=== PATIENT | female | born 1985 | race Caucasian/White ===

== ENCOUNTER 2018-03-06 22:39 | Emergency (ER) | payer OTHER ==
[2018-03-06 22:55] VITALS: TEMP 97
--- NOTE | 2018-03-07 00:28 | ED ---
Wound/Laceration HPI - General Chief Complaint: Wound/Laceration Stated Complaint: LAC ON LEFT ARM Time Seen by Provider: 03/06/18 23:36 Source: patient, RN notes reviewed, old records reviewed Mode of arrival: ambulatory Limitations: no limitations - History of Present Illness Initial Comments: 32-year-old female presents that she will complain of a laceration of her left forearm. She was doing dishes and she cut her arm on the night that she was lifting the dishes above the sink. Patient has been placed a tourniquet over this area. She is right-handed. She states she has full range of motion of the hand and wrist. Tetanus is up-to-date.Patient denies any recent fever, chills, shortness of breath, chest pain, back pain, abdominal pain, nausea vomiting, numbness or tingling, dysuria or hematuria, constipation or diarrhea, headaches or visual changes, or any other current symptoms - Related Data Home Medications Medication Instructions Recorded Confirmed Dextroamphetamine/Amphetamine 10 mg PO BID 05/29/14 05/29/14 [Adderall] Hydrocodone/Acetaminophen [[place] 1 tab PO BID PRN 05/29/14 05/29/14 7.5-325] Previous Rx's Medication Instructions Recorded Cyclobenzaprine [Flexeril] 10 mg PO TID PRN #20 tablet 05/29/14 Naproxen [Naprosyn] 500 mg PO Q12HR #30 tab 05/29/14 Cephalexin [Keflex] 500 mg PO Q8HR #21 cap 03/07/18 Allergies Allergy/AdvReac Type Severity Reaction Status Date / Time No Known Allergies Allergy Verified 03/06/18 22:56 Review of Systems ROS Statement: Those systems with pertinent positive or pertinent negative responses have been documented in the HPI. ROS Other: All systems not noted in ROS Statement are negative. Past Medical History Additional Past Medical History / Comment(s): back pain History of Any Multi-Drug Resistant Organisms: None Reported Past Surgical History: Hysterectomy Past Psychological History: Depression Smoking Status: Current every day smoker Past Alcohol Use History: Occasional Past Drug Use History: None Reported General Exam - General Exam Comments Initial Comments: 32-year-old female. No distress. Limitations: no limitations General appearance: alert, in no apparent distress Head exam: Present: atraumatic, normocephalic, normal inspection Eye exam: Present: normal appearance, PERRL, EOMI. Absent: scleral icterus, conjunctival injection, periorbital swelling ENT exam: Present: normal exam, mucous membranes moist Neck exam: Present: normal inspection. Absent: tenderness, meningismus, lymphadenopathy Respiratory exam: Present: normal lung sounds bilaterally. Absent: respiratory distress, wheezes, rales, rhonchi, stridor Cardiovascular Exam: Present: regular rate, normal rhythm, normal heart sounds. Absent: systolic murmur, diastolic murmur, rubs, gallop, clicks GI/Abdominal exam: Present: soft, normal bowel sounds. Absent: distended, tenderness, guarding, rebound, rigid Extremities exam: Present: normal inspection, full ROM, normal capillary refill , other (Patient has a linear 7 cm laceration over the forearm. No evidence of muscle involvement.). Absent: tenderness, pedal edema, joint swelling, calf tenderness Back exam: Present: normal inspection Neurological exam: Present: alert, oriented X3, CN II-XII intact Psychiatric exam: Present: normal affect, normal mood Skin exam: Present: warm, dry, intact, normal color. Absent: rash Course Vital Signs 03/06/18 03/07/18 22:52 00:28 Temperature 97 F L Pulse Rate 139 H 104 H Respiratory 20 18 Rate Blood Pressure 115/70 124/76 O2 Sat by Pulse 96 98 Oximetry Procedures - Laceration Laceration #1 Site: upper extremity (left forearm) Size (cm): 7 Description: linear Depth: simple, single layer Anesthetic Used: lidocaine 1% Anesthesia Technique: local infiltration Amount (mls): 10 Pre-repair: wound explored, irrigated extensively Type of Sutures: nylon Size of Sutures: 5-0 Number of Sutures: 9 Technique: simple, interrupted Patient Tolerated Procedure: well, no complications Medical Decision Making - Medical Decision Making This patient's a 32-year-old female presents to the emergency with left forearm laceration. No evidence of muscle involvement. Laceration is superficial. She has full range of motion of the hand and wrist. Her tetanus is up-to-date. Patient's wound was thoroughly irrigated and closed with Betadine. Patient received 9 sutures and wound was well approximated. Discussed monitoring for infection. Patient will be discharged with Keflex she also has been complaining of tooth pain. Discussed that we'll coverage. She is following up with her PCP. All questions answered return parameters were discussed. Patient did request a work note. She left without receiving a work note, if she returns it would be okay to give her one. Disposition Clinical Impression: Laceration of left forearm Disposition: HOME SELF-CARE Condition: Good Instructions: Care For Your Stitches (ED), Laceration (ED) Additional Instructions: Please return to the emergency room in 8-10 days to have sutures removed. Please leave wound covered for the first 24-48 hours and then leave open to air after that time. Please use clean soap and water to clean the suture area to prevent scabbing over the top of your sutures. Please watch for any signs of infection which may include but not limited to increased pain, swelling, redness , fever or chills. Please return to the emergency room if any signs of infection do occur. Please return to the emergency room for any other concerns or complications. Prescriptions: Cephalexin [Keflex] 500 mg PO Q8HR #21 cap Is patient prescribed a controlled substance at d/c from ED?: No If prescribed controlled substance>3 days was MAPS reviewed?: No When asked, does pt state using other controlled substances?: No Referrals: Gracie Hager MD [Primary Care Provider] - 1-2 days Time of Disposition: 00:27
[2018-03-07 00:31] VITALS: BP 124/76; PULSE 104; RESP 18
== END 2018-03-07 00:43 | disposition home or self-care (01) ==
LOC: EC 22:39
DX: S51.812A Laceration without foreign body of left forearm, initial encounter (principal); F17.200 Nicotine dependence, unspecified, uncomplicated; Z79.899 Other long term (current) drug therapy; W26.9XXA Contact with unspecified sharp object(s), initial encounter; Y93.89 Activity, other specified
CPT/HCPCS: 12002; 99283

== ENCOUNTER 2018-03-08 13:58 | Emergency (ER) | payer OTHER ==
[2018-03-08 14:20] VITALS: BP 148/92; PULSE 105; RESP 18; TEMP 98.6
--- NOTE | 2018-03-08 14:37 | ED ---
General Adult HPI - General Chief complaint: Recheck/Abnormal Lab/Rx Stated complaint: revisit wound check left arm Time Seen by Provider: 03/08/18 14:13 Source: patient, RN notes reviewed, old records reviewed Mode of arrival: ambulatory Limitations: no limitations - History of Present Illness Initial comments: This is a 32-year-old female the ER for evaluation, patient is today for reevaluation regarding left forearm laceration and repair. Patient states she has mild erythema to the forearm with itching. Denies any other complaints. Patient is currently taking Keflex and she was discharged with yesterday. She has not washed or unwrap the wound since it was covered yesterday denies any fevers, no other complaints - Related Data Home Medications Medication Instructions Recorded Confirmed Dextroamphetamine/Amphetamine 10 mg PO BID 05/29/14 05/29/14 [Adderall] Hydrocodone/Acetaminophen [[place] 1 tab PO BID PRN 05/29/14 05/29/14 7.5-325] Previous Rx's Medication Instructions Recorded Cyclobenzaprine [Flexeril] 10 mg PO TID PRN #20 tablet 05/29/14 Naproxen [Naprosyn] 500 mg PO Q12HR #30 tab 05/29/14 Cephalexin [Keflex] 500 mg PO Q8HR #21 cap 03/07/18 Allergies Allergy/AdvReac Type Severity Reaction Status Date / Time No Known Allergies Allergy Verified 03/08/18 14:34 Review of Systems ROS Statement: Those systems with pertinent positive or pertinent negative responses have been documented in the HPI. ROS Other: All systems not noted in ROS Statement are negative. Past Medical History Past Medical History: No Reported History Additional Past Medical History / Comment(s): back pain History of Any Multi-Drug Resistant Organisms: None Reported Past Surgical History: Hysterectomy Past Psychological History: ADD/ADHD, Depression Smoking Status: Current every day smoker Past Alcohol Use History: Occasional Past Drug Use History: None Reported General Exam - General Exam Comments Initial Comments: (Laceration shows good healing, no evidence of infection Limitations: no limitations General appearance: alert, in no apparent distress Head exam: Present: atraumatic, normocephalic, normal inspection Eye exam: Present: normal appearance, PERRL, EOMI. Absent: scleral icterus, conjunctival injection, periorbital swelling ENT exam: Present: normal exam, mucous membranes moist Neck exam: Present: normal inspection. Absent: tenderness, meningismus, lymphadenopathy Respiratory exam: Present: normal lung sounds bilaterally. Absent: respiratory distress, wheezes, rales, rhonchi, stridor Cardiovascular Exam: Present: regular rate, normal rhythm, normal heart sounds. Absent: systolic murmur, diastolic murmur, rubs, gallop, clicks GI/Abdominal exam: Present: soft, normal bowel sounds. Absent: distended, tenderness, guarding, rebound, rigid Extremities exam: Present: normal inspection, full ROM, normal capillary refill. Absent: tenderness, pedal edema, joint swelling, calf tenderness Back exam: Present: normal inspection Neurological exam: Present: alert, oriented X3, CN II-XII intact Psychiatric exam: Present: normal affect, normal mood Skin exam: Present: warm, dry, intact, normal color. Absent: rash Course Vital Signs 03/08/18 14:17 Temperature 98.6 F Pulse Rate 105 H Respiratory 18 Rate Blood Pressure 148/92 O2 Sat by Pulse 97 Oximetry - Reevaluation(s) Reevaluation #1: 03/08/18 14:36 Patient again discussed wound care, encouraged to continue taking antibiotics. Medical Decision Making - Medical Decision Making 32 female the ER for reevaluation left forearm laceration. Patient showing good healing no evidence of infection, patient will be discharged home Disposition Clinical Impression: Laceration of left forearm, Encounter for wound re-check Disposition: HOME SELF-CARE Condition: Good Instructions: Laceration (ED), Care For Your Stitches (ED) Is patient prescribed a controlled substance at d/c from ED?: No Referrals: Gracie Hager MD [Primary Care Provider] - 1-2 days
== END 2018-03-08 15:03 | disposition home or self-care (01) ==
LOC: EC 13:58
DX: S51.812D Laceration without foreign body of left forearm, subsequent encounter (principal); F90.9 Attention-deficit hyperactivity disorder, unspecified type; F17.200 Nicotine dependence, unspecified, uncomplicated; Z79.899 Other long term (current) drug therapy; X58.XXXD Exposure to other specified factors, subsequent encounter
CPT/HCPCS: 99283

== ENCOUNTER 2019-05-14 14:48 | Emergency (ER) | payer OTHER ==
[2019-05-14 15:00] VITALS: RESP 18
[2019-05-14] MEDS ORDERED: KETOROLAC 60 MG/2 ML VIAL IM STA (15:35)
[2019-05-14] MEDS ORDERED: ORPHENADRINE 30 MG/ML 2 ML VIAL IM STA (15:35)
--- NOTE | 2019-05-14 15:41 | ED ---
Neck Injury/Pain HPI - General Chief Complaint: Neck Pain/Injury Stated Complaint: Neck Pain, Both shoulders in pain Time Seen by Provider: 05/14/19 15:19 Source: patient, RN notes reviewed Mode of arrival: ambulatory Limitations: no limitations - History of Present Illness Initial Comments: This a 33-year-old female presents emergency Department chief complaint of neck and upper back pain. This is a chronic issue worsening. Patient was supposed go to an MRI at 2:30 today at orthopedics but states that she went in was claustrophobic sad removed. She has one scheduled tomorrow and one on Tuesday now. Patient call her PCP because he symptoms and advised to come emergency department. She has no loss control of her upper extremities no chest pain or shortness of breath. Patient states the pain is all more than usual. Patient does take more [place] day for extreme pain and states that she's been taking ibuprofen but nothing recently. - Related Data Home Medications Medication Instructions Recorded Confirmed Hydrocodone/Acetaminophen [[place] 1 tab PO BID PRN 05/29/14 03/08/18 7.5-325] Dextroamphetamine/Amphetamine 20 mg PO TID 03/08/18 03/08/18 [Adderall] Previous Rx's Medication Instructions Recorded Cephalexin [Keflex] 500 mg PO Q8HR #21 cap 03/07/18 Cyclobenzaprine [Flexeril] 10 mg PO TID PRN #15 tab 05/14/19 Ketorolac [Toradol] 10 mg PO Q8HR #15 tab 05/14/19 LORazepam [Ativan] 1 mg PO ONCE #2 tab 05/14/19 Allergies Allergy/AdvReac Type Severity Reaction Status Date / Time No Known Allergies Allergy Verified 05/14/19 14:56 Review of Systems ROS Statement: Those systems with pertinent positive or pertinent negative responses have been documented in the HPI. ROS Other: All systems not noted in ROS Statement are negative. Past Medical History Past Medical History: No Reported History Additional Past Medical History / Comment(s): back pain History of Any Multi-Drug Resistant Organisms: None Reported Past Surgical History: Section, Hysterectomy Past Psychological History: ADD/ADHD, Depression Smoking Status: Current every day smoker Past Alcohol Use History: Occasional Past Drug Use History: None Reported General Exam Limitations: no limitations General appearance: alert, in no apparent distress Head exam: Present: atraumatic, normocephalic, normal inspection Eye exam: Present: normal appearance, PERRL, EOMI. Absent: scleral icterus, conjunctival injection, periorbital swelling ENT exam: Present: normal exam, normal oropharynx, mucous membranes moist Neck exam: Present: normal inspection, tenderness (Paraspinal), full ROM. Absent: meningismus, lymphadenopathy Respiratory exam: Present: normal lung sounds bilaterally. Absent: respiratory distress, wheezes, rales, rhonchi, stridor Cardiovascular Exam: Present: regular rate, normal rhythm, normal heart sounds. Absent: systolic murmur, diastolic murmur, rubs, gallop, clicks GI/Abdominal exam: Present: soft, normal bowel sounds. Absent: distended, tenderness, guarding, rebound, rigid Extremities exam: Present: normal inspection, full ROM, normal capillary refill. Absent: tenderness, pedal edema, joint swelling, calf tenderness Back exam: Present: full ROM. Absent: tenderness, paraspinal tenderness, vertebral tenderness Neurological exam: Present: alert, oriented X3, CN II-XII intact, reflexes normal. Absent: motor sensory deficit Course Vital Signs 05/14/19 14:56 Temperature 98.2 F Pulse Rate 114 H Respiratory 18 Rate Blood Pressure 119/86 O2 Sat by Pulse 100 Oximetry Medical Decision Making - Medical Decision Making 33-year-old female presented for neck and back pain this is chronic in nature. Patient will given Toradol and Norflex in emergency department discharged with Toradol and Flexeril. Patient we given 2 Ativan for her MRIs and will follow-up with PCP. Disposition Clinical Impression: Neck pain Disposition: HOME SELF-CARE Condition: Stable Instructions (If sedation given, give patient instructions): Neck Pain (ED) Additional Instructions: Please return to the Emergency Department if symptoms worsen or any other concerns. Prescriptions: LORazepam [Ativan] 1 mg PO ONCE #2 tab Cyclobenzaprine [Flexeril] 10 mg PO TID PRN #15 tab PRN Reason: Muscle Spasm Ketorolac [Toradol] 10 mg PO Q8HR #15 tab Is patient prescribed a controlled substance at d/c from ED?: Yes When asked, does pt state using other controlled substances?: Yes If prescribed controlled substance>3 days was MAPS reviewed?: Prescribed <3 Days Referrals: Gracie Hager MD [Primary Care Provider] - 1-2 days Time of Disposition: 15:41
[2019-05-14 16:15] VITALS: BP 122/86; PULSE 93; TEMP 98.9
== END 2019-05-14 16:12 | disposition home or self-care (01) ==
LOC: EC 14:48
DX: M54.2 Cervicalgia (principal); M54.9 Dorsalgia, unspecified; G89.29 Other chronic pain; F90.9 Attention-deficit hyperactivity disorder, unspecified type; F17.200 Nicotine dependence, unspecified, uncomplicated; Z79.899 Other long term (current) drug therapy
CPT/HCPCS: 99283; 96372 ×2; J2360; J1885

== ENCOUNTER 2020-03-22 20:58 | Emergency (ER) | payer OTHER ==
[2020-03-22 21:27] VITALS: BP 135/93; RESP 18; TEMP 98.2
[2020-03-22] MEDS ORDERED: PROPARACAINE 0.5% OPHTH DROPS 15 ML BTL BOTH EYES STA (22:03)
[2020-03-22] MEDS ORDERED: FLUORESCEIN STRIPS 1 MG STRIP BOTH EYES ONE (22:03)
[2020-03-22] MEDS ORDERED: ERYTHROMYCIN 5 MG/GM OPHTH OINT 1 GM TUBE BOTH EYES STA (22:38)
--- NOTE | 2020-03-22 22:43 | ED ---
General Adult HPI - General Chief complaint: Eye Problems Stated complaint: Eye Problems Time Seen by Provider: 03/22/20 22:03 Source: patient, RN notes reviewed Mode of arrival: ambulatory Limitations: no limitations - History of Present Illness Initial comments: 34-year-old female without any significant past medical history presents to the emergency department for left eye irritation. Patient states that she was gardening when she felt irritation in the left eye. States she felt like she got something in the eye. States she rubbed the area and it felt itchy. States that she tried to rinse her eye out. Patient states she still feels like something is in her eye. She is up-to-date on tetanus 2 years ago. She does not work contacts. She denies visual changes. She denies pain with movement of the eye. States it has been tearful.Patient has no other complaints at this time including shortness of breath, chest pain, abdominal pain, nausea or vomiting, headache, or visual changes. - Related Data Home Medications Medication Instructions Recorded Confirmed Hydrocodone/Acetaminophen [[place] 1 tab PO BID PRN 05/29/14 03/08/18 7.5-325] Dextroamphetamine/Amphetamine 20 mg PO TID 03/08/18 03/08/18 [Adderall] Previous Rx's Medication Instructions Recorded Cephalexin [Keflex] 500 mg PO Q8HR #21 cap 03/07/18 Cyclobenzaprine [Flexeril] 10 mg PO TID PRN #15 tab 05/14/19 Ketorolac [Toradol] 10 mg PO Q8HR #15 tab 05/14/19 LORazepam [Ativan] 1 mg PO ONCE #2 tab 05/14/19 Allergies Allergy/AdvReac Type Severity Reaction Status Date / Time No Known Allergies Allergy Verified 03/22/20 21:27 Review of Systems ROS Statement: Those systems with pertinent positive or pertinent negative responses have been documented in the HPI. ROS Other: All systems not noted in ROS Statement are negative. Past Medical History Past Medical History: No Reported History Additional Past Medical History / Comment(s): back pain History of Any Multi-Drug Resistant Organisms: None Reported Past Surgical History: Section, Hysterectomy Past Psychological History: ADD/ADHD, Depression Smoking Status: Current every day smoker Past Alcohol Use History: Occasional Past Drug Use History: None Reported General Exam Limitations: no limitations General appearance: alert, in no apparent distress Head exam: Present: atraumatic, normocephalic, normal inspection Eye exam: Present: normal appearance, PERRL, EOMI. Absent: scleral icterus, conjunctival injection, periorbital swelling Expanded Eyelids: Normal Inspection: Bilateral Pupils: Regular, Round: Bilateral Sclera/Conjunctival: Injection: Left IOP (R) in mmH IOP (L) in mmH IOP measured with: [place] ENT exam: Present: normal exam, mucous membranes moist Neck exam: Present: normal inspection, full ROM. Absent: tenderness, meningismus, lymphadenopathy Respiratory exam: Present: normal lung sounds bilaterally. Absent: respiratory distress, wheezes, rales, rhonchi, stridor Cardiovascular Exam: Present: regular rate, normal rhythm, normal heart sounds. Absent: bradycardia, tachycardia, irregular rhythm GI/Abdominal exam: Present: soft, normal bowel sounds. Absent: distended, t enderness, guarding, rebound, rigid Neurological exam: Present: alert Psychiatric exam: Present: normal affect, normal mood Course Vital Signs 03/22/20 21:22 Temperature 98.2 F Pulse Rate 125 H Respiratory 18 Rate Blood Pressure 135/93 O2 Sat by Pulse 97 Oximetry Medical Decision Making - Medical Decision Making Left eye was examined. Both eyelids were flipped. I do not see evidence of foreign body. Proparacaine was applied to the left eye which completely alleviated her pain. The eye was then stained with fluorescein stain. Patient has a small abrasion noted at about 3:00 on the cornea of the left eye. There is no evidence for foreign body. Patient is up-to-date on tetanus and does not wear contacts. She was given ointment for the left eye. Discussed that should start improving in next 24 hours and if it does not return to the emergency room. She will return for any other worsening symptoms in that timeframe. She will follow up with ophthalmology, referral given. Disposition Clinical Impression: Corneal abrasion, left Disposition: HOME SELF-CARE Condition: Good Instructions (If sedation given, give patient instructions): Corneal Abrasion (ED) Additional Instructions: Please apply ointment every 6 hours. Give the eye about 24 hours to start feeling better. If it does not start feeling better or worsens in that time return to the emergency department. Otherwise follow-up with ophthalmology this and is possible. Is patient prescribed a controlled substance at d/c from ED?: No Referrals: Gracie Hager MD [Primary Care Provider] - 1-2 days Jolene Lamb MD [STAFF PHYSICIAN] - 1-2 days Time of Disposition: 22:39
[2020-03-22 22:59] VITALS: PULSE 98
== END 2020-03-22 22:59 | disposition home or self-care (01) ==
LOC: EC 20:58
DX: S05.02XA Injury of conjunctiva and corneal abrasion without foreign body, left eye, initial encounter (principal); F90.9 Attention-deficit hyperactivity disorder, unspecified type; F17.200 Nicotine dependence, unspecified, uncomplicated; Z79.899 Other long term (current) drug therapy; Y93.H2 Activity, gardening and landscaping; Y92.89 Other specified places as the place of occurrence of the external cause
CPT/HCPCS: 99283

== ENCOUNTER → 2020-11-17 | Outpatient (CLI) | payer OTHER ==
[2020-11-17 09:15] VITALS: BP 120/86; PULSE 111; RESP 18; TEMP 97.7
--- NOTE | 2020-11-17 19:50 | P.PN ---
Progress Note - Text Progress Note Date: 11/17/20 35-year-old female who presents to the [facility] pain clinic as an initial consultation with a chief complaint of neck pain. She states that pain began gradually over the past couple years. She does not recall a mechanism of injury. Pain is mostly on the left side worse with lateral rotation to the left she radiates to her scapula to her left shoulder. VAS at its worse is a 6 out of 10 in severity currently is a 5 out of 10. She describes as a throbbing, ach ing, sharp pain. It's typically worse in the morning and in the evening. Pain is problematic for her day-to-day activities. She feels it is getting worse. She is currently an active smoker. She has not had any physical therapy for this issue, she is taking [id number] medications. In addition to above, 13-point review of systems is also negative for chest pain, shortness of breath, changes in vision, changes in hearing, new onset weakness, abdominal pain, diarrhea, extreme fatigue, malaise, fever, skin changes, homicidal or suicidal ideation, or bowel or bladder incontinence. 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 Reflexes: 2/2 bicep, 2/2 brachioradialis, 2/2 tricep Primitive Reflexes: (-) Prasad, (-) Lhermitte, (-) Myoclonus Lumbar spine: Palpation: No tenderness to palpation Inspection: No deformities or scoliosis Range of motion: nromal flexion and extension Facet loading: Negative bilateral RADHA test: Negative bilateral Reflexes: 2/2 bilateral knee and ankle Neuromuscular: Sensation: Intact from L1-S1 Motor: 5/5 hip flexion, 5/5 knee extension, 5/5 (EHL), 5/5 Dorsiflexion, 5/5 Plantar Flexion bilateral Gait: No gait abnormalities, no assist device utilized Neuro: CN II-XII grossly intact, muscle strength lower extremities PRESERVED Assessment: 1. Cervicalgia 2. Cervical spondylosis Plan: 1. Explanation: Opioid and psychological risk scores were reviewed. Diagnoses, prognoses, and multiple treatment options including but not limited to physical therapy, interventional therapies, adjuvant medical therapies, narcotic medication therapies, and surgery were discussed with the patient and all questions were answered to the patient's satisfaction. 2. Opioid agreement: Patient signed narcotic agreement, and was orally counseled to not overuse, abuse, divert, or cell medications, and to take them as prescribed by only 1 healthcare provider. The patient was also counseled to take medications as prescribed by only 1 healthcare provider and to store opioid medications in the safe and preferably locked location. Patient was also counseled against driving or operating heavy equipment while using narcotic medications and also not use alcohol or any illicit or recreational drugs. The patient verbalized understanding that lack of compliance with any of the above and likely result in failure to renew narcotic prescriptions, possible discharge from the clinic, and possible legal ramifications thereafter if indicated. 3. Counseling: The patient was counseled extensively on SMOKING CESSATION, EXERCISE. Specifically, the patient was instructed regarding the importance of smoking cessation, and exercise in the context of both chronic pain and overall health. 4. Procedures: None 5. Consultations: None 6. Investigations: Images reviewed, maps reviewed 7. Medications: Meloxicam 15 mg once daily, recommended vitamin D supplementation. 8. Disposition: Patient will follow up as needed trialing meloxicam and switching from ibuprofen. PQRS measures: Completed on a separate document
== END | disposition home or self-care (01) ==
LOC: PNWHC3 08:52
PROVIDERS: ATTEND Anesthesiology
DX: M47.812 Spondylosis without myelopathy or radiculopathy, cervical region (principal); Z79.1 Long term (current) use of non-steroidal anti-inflammatories (NSAID); Z79.899 Other long term (current) drug therapy
CPT/HCPCS: 99211

== ENCOUNTER → 2021-01-12 | Outpatient (CLI) | payer OTHER ==
[2021-01-12 10:29] VITALS: BP 136/92; PULSE 109; RESP 18; TEMP 98.1
--- NOTE | 2021-01-12 10:56 | P.PN ---
Subjective Progress Note Date: 01/12/21 Principal diagnosis: Neck pain, and shoulder pain Mrs. Degroot is a 35-year-old pleasant female came to the [facility] pain clinic for follow-up visit. Patient has ongoing neck pain, and shoulder pain for many years. Her pain recently getting better with the physical therapy, and meloxicam 15 mg by mouth daily. She described her pain is aching, throbbing type area. she rated her pain is 7 out of 10 in severity. Sometimes which may vary from 5-7 out of 10 in severity. Some days worse than the others. Activities making her pain worse. Physical therapy, and pain medications helping in relieving her pain. She denied any red flag symptoms. She denied any side effects with the medications. Objective - Vital Signs Vital signs: Vital Signs Temp 98.1 F 01/12/21 10:26 Pulse 109 H 01/12/21 10:26 Resp 18 01/12/21 10:26 BP 136/92 01/12/21 10:26 Pulse Ox 100 01/12/21 10:26 - Exam General: well-developed, well-nourished, no acute distress. HEENT: Normocephalic, atraumatic. Neck: supple, trachea midline CVS: Regular rate and rhythm Pulmonary : Not in labored breathing. Neurologic: No noticeable focal neurological deficits. Psychiatric: Appropriate mood and affect. Musculoskeletal: Upper extremity : Normal strength and range of motion, and sensation grossly intact.. Lower extremity: Normal strength and range of motion. Cervical paravertebral tenderness: Positive. Cervical facet load test: Positive. cervical Spurling test: negative Multiple trigger points positive over cervical, and upper thoracic area. Review of symptoms: 13 point review of symptoms negative except as mentioned in the history of present illness Assessment and Plan Assessment: Cervical spondylosis without myelopathy Myofascial pain syndrome Plan: 1. Diagnoses, prognoses, and multiple treatment options including but not limited to physical therapy, interventional therapies, adjunct medical therapies, and surgical options were discussed with the patient and all questions were answered to the patients satisfaction. 2. Treatment plan agreement: Patient was discussed regarding the medication side effects, and complications associated medications. 3. The patient was counseled on importance of regular exercise in controlling chronic pain as well as in terms of overall well-being. Patient counseled regarding the importance of regular exercise, and minimizing the intake of carbohydrates, and process foods which may help in decreasing the inflammation, and helps overall well-being. Patient counseled regarding smoking association with chronic pain, worsening inflammation, effects of smoking on liver and medication metabolism. Patient encouraged to stop smoking, patient was given information regarding smoking cessation program. 4. Consultations: Continue physical therapy exercises at home 5. Investigations: MAPS- appropriate , and urine drug test- not done. 6. Diagnostic studies: None. 7. Interventional procedures: Patient refused any interventional procedures at this time 8. Medications: #1 Mobic 15 mg by mouth daily as needed dispense 30 with 1 refill 9. Morphine milligram equivalent (MME) doses: 0 from the pain clinic. 10. Durable Medical Equipment (DME) : TENS units, and percussion massage device. 11. Disposition: Scheduled for follow-up in 8 weeks duration. I have spent greater than 22 minutes with this patient. Including but not limited to: [id number] time, on physical examination, electronic medical record review, counseling, and documentation
== END ==
LOC: PNWHC3 10:08
DX: M47.812 Spondylosis without myelopathy or radiculopathy, cervical region (principal); G89.4 Chronic pain syndrome; M79.18 Myalgia, other site
CPT/HCPCS: 99211

== ENCOUNTER → 2021-03-09 | Outpatient (CLI) | payer OTHER ==
[2021-03-09 10:17] VITALS: BP 136/97; PULSE 111; RESP 18; TEMP 97.6
--- NOTE | 2021-03-09 10:20 | P.PN ---
Subjective Progress Note Date: 03/09/21 Shakila is a 35-year-old female who presents as a follow-up secondary to left- sided neck pain. She reports she's had this pain for quite some time is relatively unchanged. The pain is of the left side of the neck which is worse flexion and extension of the cervical spine. The pain does not go down the arms or cause any numbness tingling or weakness in the upper or lower extremities. She is trialed physical therapy as well as NSAIDs without any significant relief. She is here today requesting previously discussed cervical medial branch blocks as a diagnostic tool. Review of Systems: Denies any New chest pain, short of breath, Nausea/vomitting, abdominal pain, bowel or bladder incontinence, or any overt new neurologic symptoms in the upper or lower extremities outside of what is noted in the HPI MRI of the cervical spine shows mild central joint arthropathy at 56 and C6 7 Objective - Vital Signs Vital signs: Intake & Output 03/08/21 03/09/21 03/09/21 18:59 06:59 18:59 Weight 68.039 kg - Exam PHYSICAL EXAM: Constitutional: Awake and alert no distress Cardiovascular exam: Regular rate, no lower extremity edema, palpable pulses bilaterally Respiratory exam: No audible wheezing, no accessory muscle usage Abdominal exam: Soft nontender Muscular skeletal exam: - Cervical spine: Minimal tenderness to palpation, flexion and extension causes pain. Facet loading is positive on the left. - Lumbar spine: Preserved lumbar lordosis. No changes in skin. Nontender palpation bilateral. Patient has full range of motion in flexion and extension as well as lateral sidebending. Straight leg raise is negative. Facet loading is negative. Neuro exam: Normal sensation bilateral upper and lower extremities. Deep tendon reflexes are 2+ bilaterally. Prasad's is negative Psychiatric exam: Cooperative, good insight Assessment and Plan Assessment: #1 cervical spondylosis without myelopathy Plan: Patient is failed conservative therapy and would like to move forward with testing of the cervical medial branches. I discussed this with the patient, she has verbalized understanding of the process that this is a diagnostic test and would last about 6 or 8 hours. We've explained that she should not have sedation for this procedure as it may alter the results of the study. We'll schedule her for a left-sided C5 6 and 67 cervical medial branch block. I will also refill her meloxicam. I have spent 23 minutes on patient care today. The time was used to review the medical records including relevant urine studies and Prescription history (MAPs), review of the available imaging, evaluation and examination of the patient, coordination of care with the medical staff and if applicable referring physicians, as well as creation of the medical record.
== END ==
LOC: PNWHC3 09:59
PROVIDERS: ATTEND Hospitalist
DX: M47.812 Spondylosis without myelopathy or radiculopathy, cervical region (principal)
CPT/HCPCS: 99211

== ENCOUNTER 2021-05-29 10:47 | Day surgery (SDC) | payer OTHER ==
[2021-05-28 12:06] VITALS: BMI 23.3
[~2021-05-29 10:47] MED LIST: LACTATED RINGERS 1,000 ML IV SCH
[2021-05-29 11:47] VITALS: RESP 16; TEMP 97.8
[2021-05-29] MEDS ORDERED: DEXAMETHASONE SOD PHOSPHATE 10 MG/ML 1 ML VIAL ONE (12:49)
[2021-05-29] MEDS ORDERED: MIDAZOLAM 2 MG/2 ML VIAL ONE (12:49)
[2021-05-29] MEDS ORDERED: ROPIVACAINE 5MG/ML 20ML VIAL ONE (12:49)
[2021-05-29] MEDS ORDERED: fentaNYL (PF) 50 MCG/ML 2 ML AMP ONE (12:49)
--- NOTE | 2021-05-29 13:10 | P.PCN ---
Date of Procedure: 05/29/21 Surgeon: Yadiel Mcintosh Pathology: none sent Condition: stable Disposition: PACU Description of Procedure: PREOPERATIVE DIAGNOSIS: Cervical Spondylosis with Facet Arthropathy.without myelopathy POSTOPERATIVE DIAGNOSIS: Cervical Spondylosis Facet Arthropathy. Without myelopathy PROCEDURES: Diagnostic left C5,6,7 medial branchs block with fluoroscopic guidance ANESTHESIA: Local with 1% lidocaine; with moderate conscious sedation by the anesthesia Department. EBL: Minimal PROCEDURE INDICATION: The patient with neck pain secondary to cervical arthropathy unresponsive to more conservative treatments. PROCEDURE DESCRIPTION / TECHNIQUE: The patient was seen and identified in the preoperative area. Risks, benefits, complications, and alternatives were discussed with the patient, the patient agreed to proceed with the procedure and signed the consent. IV was started. Vital signs remained stable throughout the procedure. Patient was taken to the OR and time out was completed. The patient was placed in the supine position on the procedure table. . The cervical area was prepped with chloraprep and draped in the usual sterile fashion. Critical pause was taken. Vital signs were closely monitored during the procedure. Conscious sedation was used during the procedure to decrease patients anxiety. Using cross-table lateral fluoroscopy, the centroid of the trapezoid of C5 , C6 and the superior articular proceess of C7, was identified, marked, and localized with 1% lidocaine 1 ml at each level for skin and Sub Q infiltrations . Subsequently, a 25 G 3.5 inch spinal needle was advanced guided by fluoroscopy to the centroid of the trapezoid of C5, C6 ,and the superior articular process of C7 . Subsequently, 3 ml of preservative-free Bupivacaine 0.5% mixed with Dexamethasone 10 mg and half ml of the mixture was injected at each level after negative aspiration for blood and CSF. Dawes were then removed intact . COMPLICATIONS: No acute complications. COMMENTS: DISPOSITION / PLANS: The patient was placed in a supine position and transferred to the recovery area in a stable condition for observation and was discharged from the recovery room after meeting discharge criteria. Home discharge instructions given to the patient by the staff. The patient was reexamined prior to discharge. The patient will schedule a follow up in the clinic in 2-4 weeks.
[2021-05-29] MEDS ORDERED: IV FLUID CONTINUATION 550 ML IV ONE (13:13)
[2021-05-29 13:31] VITALS: BP 126/89; PULSE 89
--- NOTE | 2021-05-29 13:40 | FL ---
EXAMINATION TYPE: FL guided pain mgmt statistic DATE OF EXAM: 05/29/2021 HISTORY: Fluoroscopy time 18 seconds of fluoroscopy provided. IMPRESSION: 1. Fluoroscopy time.
== END 2021-05-29 13:46 | disposition home or self-care (01) ==
LOC: ORPAIN 10:47
PROVIDERS: ATTEND Anesthesiology
DX: M47.812 Spondylosis without myelopathy or radiculopathy, cervical region (principal); F90.2 Attention-deficit hyperactivity disorder, combined type; F17.200 Nicotine dependence, unspecified, uncomplicated; F41.8 Other specified anxiety disorders; Z88.5 Allergy status to narcotic agent
CPT/HCPCS: 81025; 64490; 64491; 64492; J2250; J1100; J3010; J2795

== ENCOUNTER 2022-02-05 07:28 | Observation (INO) | payer OTHER ==
[2022-02-05] MEDS ORDERED: LORazepam 2 MG/ML INJ IV STA (07:51)
[2022-02-05 08:14] LABS: Basophils % (A) 1 %; Eosinophils # (A) 0.3 k/uL (0-0.7); Eosinophils % (A) 4 %; HCT 39.7 % (34.0-46.0); HGB 12.8 gm/dL (11.4-16.0); Lymphocytes # (A) 2.6 k/uL (1.0-4.8); Lymphocytes % (A) 38 %; MCH 30.4 pg (25.0-35.0); MCHC 32.3 g/dL (31.0-37.0); MCV 94.2 fL (80.0-100.0); Monocytes # (A) 0.3 k/uL (0-1.0); Monocytes % (A) 4 %; Neutrophils # (A) 3.6 k/uL (1.3-7.7); Neutrophils % (A) 52 %; Platelet Count 265 k/uL (150-450); RBC 4.21 m/uL (3.80-5.40); RDW 13.5 % (11.5-15.5); WBC 6.8 k/uL (3.8-10.6)
[2022-02-05 08:25] LABS: ALT 14 U/L (4-34); AST 24 U/L (14-36); African American GFR (CKD) >90 (>60 ml/min/1.73 sqM); Albumin 3.9 g/dL (3.5-5.0); Alkaline Phosphatase 65 U/L (38-126); Anion Gap 8 mmol/L; Blood Urea Nitrogen 9 mg/dL (7-17); Carbon Dioxide 24 mmol/L (22-30); Chloride 106 mmol/L (98-107); Glucose 113 mg/dL (74-99); Non-African American GFR(CKD) >90 (>60 ml/min/1.73 sqM); Potassium 3.8 mmol/L (3.5-5.1); Sodium 138 mmol/L (137-145); Total Bilirubin 0.9 mg/dL (0.2-1.3)
[2022-02-05 08:42] LABS: HCG,Quantitative Serum 70.7 mIU/mL
--- NOTE | 2022-02-05 08:45 | ED ---
General Adult HPI - General Chief complaint: Vaginal Bleeding Stated complaint: Vaginal bleeding Time Seen by Provider: 02/05/22 07:37 Source: patient, RN notes reviewed Mode of arrival: ambulatory Limitations: no limitations - History of Present Illness Initial comments: This is a 36-year-old female presents emergency from chief complaint of miscarriage. Patient states she patient miscarriage one month ago. She is scheduled follow-up with [facility] but states that she started having been having heavy vaginal bleeding this morning. Patient states that she has abdominal cramping. She did take some Rufe, anxiety medication prior arrival. Patient s tates that she's gone through multiple pads in the last hour. She has some lightheaded, short of breath, fevers chills no dysuria. Patient offers no complaints. Patient does admit that she had an ultrasound on 36 labwork at [facility]. Patient states she's having a miscarriage. Patient states that she didn't have this bleeding until today. Patient had pain today which was abnormal for her. - Related Data Home Medications Medication Instructions Recorded Confirmed Hydrocodone/Acetaminophen [Rufe 1 tab PO TID PRN 05/29/14 02/05/22 7.5-325] clonazePAM [KlonoPIN] 1 mg PO DAILY PRN 02/05/22 02/05/22 Allergies Allergy/AdvReac Type Severity Reaction Status Date / Time morphine Allergy Unknown Itching Verified 02/05/22 09:23 Review of Systems ROS Statement: Those systems with pertinent positive or pertinent negative responses have been documented in the HPI. ROS Other: All systems not noted in ROS Statement are negative. Past Medical History Past Medical History: No Reported History Additional Past Medical History / Comment(s): NECK AND LEFT SHOULDER PAIN. History of Any Multi-Drug Resistant Organisms: None Reported Past Surgical History: Section Additional Past Surgical History / Comment(s): OVARY AND FALLOPIAN TUBE REMOVED. Past Anesthesia/Blood Transfusion Reactions: No Reported Reaction Past Psychological History: ADD/ADHD, Anxiety, Depression Smoking Status: Current every day smoker Past Alcohol Use History: Occasional Past Drug Use History: Marijuana - Past Family History Mother Family Medical History: No Reported History General Exam Limitations: no limitations General appearance: alert, in no apparent distress, anxious Neck exam: Present: normal inspection. Absent: tenderness, meningismus, lymphadenopathy Respiratory exam: Present: normal lung sounds bilaterally. Absent: respiratory distress, wheezes, rales, rhonchi, stridor Cardiovascular Exam: Present: normal rhythm, tachycardia, normal heart sounds. Absent: systolic murmur, diastolic murmur, rubs, gallop, clicks GI/Abdominal exam: Present: soft, tenderness, normal bowel sounds. Absent: distended, guarding, rebound, rigid Back exam: Absent: CVA tenderness (R), CVA tenderness (L) Neurological exam: Present: altered Psychiatric exam: Present: anxious Course Vital Signs 02/05/22 02/05/22 02/05/22 07:29 09:00 10:10 Temperature 97 F L Pulse Rate 116 H 84 80 Respiratory 18 18 18 Rate Blood Pressure 113/72 112/70 109/78 O2 Sat by Pulse 99 97 98 Oximetry Medical Decision Making - Medical Decision Making The patient's case discussed with Dr. Andino patient be admitted for observation given there is abnormal ultrasound findings possible retained products, posterior cul-de-sac fluid collection. Patient lab work reveals stable hemoglobin, hCG is currently 70. Patient says hCG one month ago was 273. X-ray will admit the patient observation and repeat H&H and further evaluation. - Lab Data Result diagrams: 02/05/22 08:02 02/05/22 08:02 Lab Results 02/05/22 02/05/22 Range/Units 08:02 08:02 WBC 6.8 (3.8-10.6) k/uL RBC 4.21 (3.80-5.40) m/uL Hgb 12.8 (11.4-16.0) gm/dL Hct 39.7 (34.0-46.0) % MCV 94.2 (80.0-100.0) fL MCH 30.4 (25.0-35.0) pg MCHC 32.3 (31.0-37.0) g/dL RDW 13.5 (11.5-15.5) % Plt Count 265 (150-450) k/uL MPV 7.0 Neutrophils % 52 % Lymphocytes % 38 % Monocytes % 4 % Eosinophils % 4 % Basophils % 1 % Neutrophils # 3.6 (1.3-7.7) k/uL Lymphocytes # 2.6 (1.0-4.8) k/uL Monocytes # 0.3 (0-1.0) k/uL Eosinophils # 0.3 (0-0.7) k/uL Basophils # 0.0 (0-0.2) k/uL Sodium 138 (137-145) mmol/L Potassium 3.8 (3.5-5.1) mmol/L Chloride 106 (98-107) mmol/L Carbon Dioxide 24 (22-30) mmol/L Anion Gap 8 mmol/L BUN 9 (7-17) mg/dL Creatinine 0.54 (0.52-1.04) mg/dL Est GFR (CKD-EPI)AfAm >90 (>60 ml/min/1.73 sqM) Est GFR (CKD-EPI)NonAf >90 (>60 ml/min/1.73 sqM) Glucose 113 H (74-99) mg/dL Calcium 9.0 (8.4-10.2) mg/dL Total Bilirubin 0.9 (0.2-1.3) mg/dL AST 24 (14-36) U/L ALT 14 (4-34) U/L Alkaline Phosphatase 65 (38-126) U/L Total Protein 7.0 (6.3-8.2) g/dL Albumin 3.9 (3.5-5.0) g/dL HCG, Quant 70.7 mIU/mL Disposition Clinical Impression: Miscarriage, Retained tissue, Pelvic fluid collection Disposition: ADMITTED IP TO THIS [facility] Condition: Fair Referrals: None,Stated [Primary Care Provider] - 1-2 days
--- NOTE | 2022-02-05 09:37 | US ---
EXAMINATION TYPE: US pelvis complete transvag DATE OF EXAM: 02/05/2022 COMPARISON: NONE CLINICAL HISTORY: Vaginal bleeding. Heavy vaginal bleeding today; EC patient stated had miscarriage M arch 6th, pelvic cramping now; left ovary and fallopian tube removed TECHNIQUE: Transvaginal (TV) and Transabdominal (TA) . Transabdominal sonographic images of the pel vis were acquired. Transvaginal sonographic images were medically necessary to better assess the fol lowing anatomy: right ovary Date of LMP: 12/06/2021, unless today is new cycle EXAM MEASUREMENTS: Uterus: 9.6 x 5.8 x 5.4 cm Endometrial Stripe: 2.8 cm Right Ovary: 1.5 x 2.7 x 2.7 cm Left Ovary: surgically removed per patient 1. Uterus: Anteverted 2. Endometrium: abnormally thickened endometrium with complex appearance in upper endometrium with a ssociated color flow noted in periphery may suggest possible retained products of conception from mis carriage 3. Right Ovary: small follicles are seen 4. Left Ovary: surgically absent Spectral, color and waveform doppler imaging shows good arterial and venous flow within the right o vary; there is no evidence for ovarian torsion. 5. Bilateral Adnexa: wnl 6. Posterior cul-de-sac: abnormal complex fluid area here with solid internal component = 3.1 x 6.4 x 5.4cm. Patient voided again after TV US and solid heterogeneous mass is still present in cul de sa c. Beta HC.7 mIU/ml measured today in EC. IMPRESSION: 1. Abnormally thickened endometrium with complex appearance in the endometrium demonstrating color fl ow suggestive of retained products 2. Abnormal complex fluid area with solid internal component measuring 6. 4 Cm in the posterior cul-d e-sac is nonspecific. This could be related to hematoma. Mass, abscess or tumor felt less likely but not excluded. Correlate with history if there has been history of ectopic or ruptured ectop ic . No prior exams are available appearance.
[2022-02-05] MEDS ORDERED: SODIUM CHLORIDE 0.9% 1,000 ML IV ONE (09:50)
[2022-02-05] MEDS ORDERED: NALOXONE 0.4 MG/ML 1 ML VIAL IV PRN (11:46)
[2022-02-05] MEDS ORDERED: ACETAMINOPHEN TAB 325 MG TAB PO PRN (11:46)
[2022-02-05] MEDS ORDERED: ONDANSETRON 4 MG/2 ML VIAL IVP PRN (11:46)
[2022-02-05 14:46] VITALS: RESP 16
--- NOTE | 2022-02-05 17:48 | P.HPOB ---
History of Present Illness H&P Date: 02/05/22 Chief Complaint: vaginal bleeding 36 year old presents 4 weeks after a miscarriage followed by Dr Massey and Ronald Sanchez. Her bhcg was 71,000 but went down to 260 per pt. Today the bhcg is 70. She came to the hospital this morning after waking up with heavy vaginal bleeding, passing clots and soaking 3 pads in an hour. hemoglobin and vitals are stable so far and bleeding has decreased significantly. Pt denies any pain, just c/o some period like cramps when she was in ER. US reviewed and showed thickened endometrium and fluid in the cul de sac. Review of Systems All systems: negative Constitutional: Denies chills, Denies fever Eyes: denies blurred vision, denies pain Ears, nose, mouth and throat: Denies headache, Denies sore throat Cardiovascular: Denies chest pain, Denies shortness of breath Respiratory: Denies cough Gastrointestinal: Denies abdominal pain, Denies diarrhea, Denies nausea, Denies vomiting Genitourinary: Denies dysuria, Denies hematuria Musculoskeletal: Denies myalgias Integumentary: Denies pruritus, Denies rash Neurological: Denies numbness, Denies weakness Psychiatric: Denies anxiety, Denies depression Endocrine: Denies fatigue, Denies weight change Past Medical History Past Medical History: No Reported History Additional Past Medical History / Comment(s): NECK AND LEFT SHOULDER PAIN. History of Any Multi-Drug Resistant Organisms: None Reported Past Surgical History: Section Additional Past Surgical History / Comment(s): OVARY AND FALLOPIAN TUBE REMOVED. Past Anesthesia/Blood Transfusion Reactions: No Reported Reaction Past Psychological History: ADD/ADHD, Anxiety, Depression Additional Psychological History / Comment(s): STATES SHE TOOK HERSELF OFF DEPRESSION MEDS. Smoking Status: Current every day smoker Past Alcohol Use History: Occasional Additional Past Alcohol Use History / Comment(s): 1PPD, STARTED AGE 16. DRINKS 2-3 DRINKS EVERY COUPLE DAYS. DRINKS OVER 7 DRINKS IN A WEEK Past Drug Use History: Marijuana - Past Family History Mother Family Medical History: No Reported History Medications and Allergies Home Medications Medication Instructions Recorded Confirmed Type Hydrocodone/Acetaminophen [[place] 1 tab PO TID PRN 05/29/02/05/22 History 7.5-325] clonazePAM [KlonoPIN] 1 mg PO DAILY PRN 02/05/22 02/05/22 History Allergies Allergy/AdvReac Type Severity Reaction Status Date / Time morphine Allergy Unknown Itching Verified 02/05/22 14:25 Exam Osteopathic Statement: *. No significant issues noted on an osteopathic structural exam other than those noted in the History and Physical/Consult. Vital Signs Temp Pulse Pulse Resp BP BP Pulse Ox 02/05/22 14:42 98.3 F 98 16 140/80 100 02/05/22 12:00 82 18 116/76 98 02/05/22 10:10 80 18 109/78 98 02/05/22 09:00 84 18 112/70 97 02/05/22 07:29 97 F L 116 H 18 113/72 99 Intake and Output 02/05/22 02/05/22 02/05/22 06:59 14:59 22:59 Output Total 50 Balance -50 Output: Urine 50 Straight 50 Other: # Voids 1 Weight 68.039 kg HEart: RRR Lungs: CTAB Abdomen: soft, nontender Extremeties: neg shane's Results Result Diagrams: 02/05/22 08:02 02/05/22 08:02 Abnormal Lab Results - Last 24 Hours (Table) 02/05/22 Range/Units 08:02 Glucose 113 H (74-99) mg/dL Assessment and Plan (1) Spontaneous Current Visit: Yes Status: Acute Code(s): O03.9 - COMPLETE OR UNSP SPONTANEOUS WITHOUT COMPLICATION SNOMED Code(s): 10932535 (2) Pelvic fluid collection Current Visit: Yes Status: Acute Code(s): R18.8 - OTHER ASCITES SNOMED Code(s): 974877680 (3) Episode of heavy vaginal bleeding Current Visit: Yes Status: Acute Code(s): N93.9 - ABNORMAL UTERINE AND VAGINAL BLEEDING, UNSPECIFIED SNOMED Code(s): 624784898 Plan: 1. recheck cbc 2. bhcg in am (about 24 hours from previous). If going down significantly or zero, will monitor outpatient. If still elevated around 70, or her bleeding increases again, we discussed possibly having a D&C. 3. NPO after midnight.
[2022-02-05 18:12] LABS: Basophils % (A) 0 %; Eosinophils # (A) 0.1 k/uL (0-0.7); Eosinophils % (A) 1 %; HCT 33.7 % (34.0-46.0); HGB 10.8 gm/dL (11.4-16.0); Lymphocytes # (A) 1.9 k/uL (1.0-4.8); Lymphocytes % (A) 27 %; MCH 30.8 pg (25.0-35.0); MCV 96.4 fL (80.0-100.0); Mean Platelet Volume 7.8; Monocytes # (A) 0.3 k/uL (0-1.0); Monocytes % (A) 4 %; Neutrophils # (A) 4.6 k/uL (1.3-7.7); Neutrophils % (A) 67 %; Platelet Count 227 k/uL (150-450); RDW 13.5 % (11.5-15.5); WBC 6.9 k/uL (3.8-10.6)
[2022-02-06 08:11] LABS: Basophils % (A) 0 %; Eosinophils # (A) 0.2 k/uL (0-0.7); Eosinophils % (A) 3 %; HCT 29.3 % (34.0-46.0); HGB 9.5 gm/dL (11.4-16.0); Lymphocytes # (A) 1.5 k/uL (1.0-4.8); Lymphocytes % (A) 22 %; MCH 31.3 pg (25.0-35.0); MCHC 32.4 g/dL (31.0-37.0); MCV 96.5 fL (80.0-100.0); Mean Platelet Volume 7.4; Monocytes # (A) 0.2 k/uL (0-1.0); Monocytes % (A) 3 %; Neutrophils # (A) 4.8 k/uL (1.3-7.7); Neutrophils % (A) 71 %; Platelet Count 195 k/uL (150-450); RBC 3.03 m/uL (3.80-5.40); RDW 13.3 % (11.5-15.5); WBC 6.8 k/uL (3.8-10.6)
--- NOTE | 2022-02-06 09:10 | P.PN ---
Progress Note - Text Progress Note Date: 02/06/22 Patient seen and examined at bedside. She was admitted for heavy vaginal bleeding after miscarriage with continued elevated beta-hCG. Her beta-hCG went from 70 down to 48 today. Her hemoglobin also did drop though, from 12 to 9.5. We discussed observation versus suction D&C. Patient says this is been going on to long and she would prefer to have a suction D&C. Discussed risks and benefits and alternatives with her and her significant other. Will continue with plan of suction D&C.
[2022-02-06] MEDS ORDERED: MIDAZOLAM 2 MG/2 ML VIAL ONE (13:15)
[2022-02-06] MEDS ORDERED: KETOROLAC 15 MG/ML 1 ML VIAL ONE (13:15)
[2022-02-06] MEDS ORDERED: PROPOFOL 10 MG/ML 20 ML VIAL IV ONE (13:15)
[2022-02-06] MEDS ORDERED: LIDOCAINE 1% INJ 10MG/ML (20 ML MDV) ONE (13:15)
[2022-02-06] MEDS ORDERED: fentaNYL (PF) 50 MCG/ML 2 ML AMP ONE (13:15)
[2022-02-06] MEDS ORDERED: LACTATED RINGERS 1,000 ML IV ONE (13:19)
[2022-02-06] MEDS ORDERED: IV FLUID CONTINUATION 1,000 ML IV ONE (13:42)
--- NOTE | 2022-02-06 13:43 | P.OP ---
Date of Procedure: 02/06/22 Preoperative Diagnosis: 1. incomplete Postoperative Diagnosis: 1. incomplete Procedure(s) Performed: suction D&C Anesthesia: MAC Surgeon: Selina Andino Estimated Blood Loss (ml): 100 IV fluids (ml): 200 Urine output (ml): 40 Pathology: other (products of conception) Condition: stable Disposition: PACU Operative Findings: moderate amount products of conception found in cervix. Description of Procedure: Patient is taken the operating room where general anesthesia was obtained without difficulty. She is prepped and draped in normal sterile fashion dorsal lithotomy position, legs placed in candycane stirrups. Bladder was drained of all urine. Weighted speculum place in vagina the anterior lip the cervix was grasped with a Allis clamp. She was seen at the cervical os and was pulled out using the ring forcep. The cervix was found are to be dilated 1-2 cm. The #12 curved suction curet was introduced into the uterus and passed several times to clear all tissue and blood. Hemostasis was achieved. Patient tolerated procedure well, sponge initial counts correct 2 and she was taken to recovery in stable condition.
--- NOTE | 2022-02-06 13:45 | P.DS ---
Providers Date of admission: 02/05/22 11:46 Expected date of discharge: 02/06/22 Attending physician: Selina Andino Primary care physician: Stated None - Discharge Diagnosis(es) (1) Spontaneous Current Visit: Yes Status: Acute (2) Pelvic fluid collection Current Visit: Yes Status: Acute (3) Episode of heavy vaginal bleeding Current Visit: Yes Status: Acute (4) Status post D&C Current Visit: Yes Status: Acute Hospital Course: Patient presented with heavy vaginal bleeding and a beta-hCG of 70. She says she had a miscarriage about a month ago and never follow her beta-hCGs all the way to 0. They were 71,000 and then down to 260 and then 70. Her hemoglobin did drop from 12-9.5. Her beta-hCG only dropped to 48. Patient did request the D&C which seemed to be very appropriate. She was taken the operating room suction D&C was performed and a moderate amount of tissue was removed. Patient tolerated the procedure well. She'll be discharged home postoperative day 0 in stable condition to follow-up with me in 3 weeks. Patient Condition at Discharge: Fair Plan - Discharge Summary New Discharge Prescriptions: New Ibuprofen [Motrin] 600 mg PO Q6HR PRN #30 tab PRN Reason: Mild Pain Or Fever >= 100.5 No Action Hydrocodone/Acetaminophen [[place] 7.5-325] 1 tab PO TID PRN PRN Reason: Pain clonazePAM [KlonoPIN] 1 mg PO DAILY PRN PRN Reason: Anxiety Discharge Medication List Hydrocodone/Acetaminophen [[place] 7.5-325] 1 tab PO TID PRN 05/29/14 [History] clonazePAM [KlonoPIN] 1 mg PO DAILY PRN 02/05/22 [History] Ibuprofen [Motrin] 600 mg PO Q6HR PRN #30 tab 02/06/22 [Rx] Follow up Appointment(s)/Referral(s): None,Stated [Primary Care Provider] - 1-2 days Selina Andino DO [Doctor of Osteopathic Medicine] - 3 Weeks Discharge Disposition: HOME SELF-CARE
[2022-02-06 16:23] VITALS: BP 90/51; PULSE 78; TEMP 97.9
== END 2022-02-06 16:38 | disposition home or self-care (01) ==
LOC: EC 07:28 → 4FBP 11:46
PROVIDERS: ADMIT Obstetrics & Gynecology; ATTEND Obstetrics & Gynecology
DX: O03.4 Incomplete spontaneous abortion without complication (principal); F32.A Depression, unspecified; F41.9 Anxiety disorder, unspecified; F90.9 Attention-deficit hyperactivity disorder, unspecified type; F17.210 Nicotine dependence, cigarettes, uncomplicated; Z88.5 Allergy status to narcotic agent; Z98.891 History of uterine scar from previous surgery; Z90.79 Acquired absence of other genital organ(s); Z90.721 Acquired absence of ovaries, unilateral
CPT/HCPCS: 99285; 36415; 86900; 86901; 88305; 80053; 85025 ×2; 86850; 84702 ×2; 93976; 76856; 76830; 59812; G0378 ×2; J2250; J2001; J3010; J1885; J2704